=== PATIENT | female | born 1960 | race Caucasian/White ===

== ENCOUNTER 2018-11-25 06:36 | Observation (INO) | payer OTHER ==
[2018-11-25] MEDS ORDERED: NS 1,000 ML IV ONE (06:39)
[2018-11-25 07:12] LABS: PLATELET COUNT 156 10^3/uL (150-400)
[2018-11-25 07:21] LABS: INR 0.92 (0.83-1.16)
--- NOTE | 2018-11-25 07:47 | PDGENHP ---
History & Physical Chief Complaint: svt Relevant Physical Exam: s1s2 rrr cta ao3 Cardiorespiratory Assessment: for eps and svt ablation
[2018-11-25] MEDS ORDERED: ISOPROTERENOL HCL/D5W 0.2 MG/50 ML BAG IV ONE (08:16)
[2018-11-25] MEDS ORDERED: BUPIVACAINE 0.75% 10 ML SDV ONE (08:16)
[2018-11-25] MEDS ORDERED: HEPARIN 10,000 UNIT/10 ML MDV (1,000 UNIT/ML) ONE (08:16)
[2018-11-25] MEDS ORDERED: LIDOCAINE 1% 300 MG/30 ML SDV ONE (08:16)
[2018-11-25] MEDS ORDERED: MIDAZOLAM 2 MG/2 ML VIAL IVP ONE (08:22)
--- NOTE | 2018-11-25 08:25 | PDANEPAE ---
ANE History of Present Illness 58 YO with hx of SVT ANE Past Medical History - Cardiovascular History Hx Arrhythmias: Yes - Pulmonary History Hx Sleep Apnea: No ANE Review of Systems Review of systems is: negative Review of Systems: ANE Patient History - Allergies Allergies/Adverse Reactions: No Known Allergies Allergy (Unverified 11/13/09 08:35) - Home Medications Home medications: home medication list seen and reviewed - Anes Hx Anes Hx: post operative nausea - Smoking Hx Smoking Status: Never smoked ANE Labs/Vital Signs - Labs Result Diagrams: 11/25/18 06:50 11/25/18 06:50 - Vital Signs Height: 165.1 cm ANE Physical Exam - Airway Neck exam: FROM Mallampati Score: Class 1 Mouth exam: normal dental/mouth exam - Pulmonary Pulmonary: no respiratory distress, clear to auscultation - Cardiovascular Cardiovascular: regular rate and rhythym - ASA Status ASA Status: III ANE Anesthesia Plan Anesthesia Plan: general endotracheal anesthesia
[2018-11-25] MEDS ORDERED: PROPOFOL/EMULSION 500 MG/50 ML BOTTLE IV ONE ×2 (09:24→10:24)
[2018-11-25] MEDS ORDERED: fentaNYL 100 MCG/2 ML INJ ONE (09:24)
[2018-11-25] MEDS ORDERED: PROPOFOL 200 MG/20 ML VIAL ONE (09:24)
--- NOTE | 2018-11-25 11:24 | EPPROC ---
Electrophysiology Procedure Note: ELECTROPHYSIOLOGIC STUDY AND CATHETER MEDIATED ABLATION OF SLOW/FAST AV CLYDE REENTRY TACHYCARDIA PROCEDURES PERFORMED: 68070-77 EP evaluation with RA/RV/LA pace/record, with arrhythmia induction 82865-03 EP evaluation with RA/RV pace record, insert/reposition catheter, with arrhythmia induction 45503 Intracardiac catheter ablation, SVT arrhythmogenic focus 59658 3D mapping Fluoroscopy INDICATION: Recurrent SVT PROCEDURE: Catheters & Anesthesia: The patient arrived in the Electrophysiology Laboratory in the fasting state. The right clavicular region, right groin, and left groin area were prepped and draped in the usual sterile manner. Anesthesiologist Dr. Les Reynolds administered general anesthesia. Appropriate non-invasive blood pressure, pulse oximetry and end-tidal CO2 monitoring was established. All catheters were placed percutaneously using the modified Seldinger technique , and advanced into position under fluoroscopic guidance. One #6 Uzbek hexapolar non-deflectable electrode catheter was inserted into the right atrial appendage via the left femoral vein (2mm spacing; except the proximal ring which was 25cm from the tip used for unipolar recordings). One #7 Uzbek deflectable octapolar electrode catheter was advanced to the His-bundle position via the left femoral vein (2mm spacing). One #7 Uzbek deflectable quadrapolar catheter was advanced to the anteroseptal right ventricle via the right femoral vein. One #7 Uzbek deflectable catheter with 10 pairs of electrodes was placed via the right femoral vein into the coronary sinus. Heparin was given to keep ACT > 200 s. Programmed stimulation was performed from the right atrium, right ventricle and coronary sinus (left atrium). Parahisian pacing demonstrated constant H-A interval with changing V-A intervals and stimulus-A intervals during capture and loss of capture of proximal RBB proving retrograde conduction over AV node. 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 Ventricular extrastimuli delivered during tachycardia without altering antegrade His bundle activation did not advance next atrial potential, indicating that the tachycardia was not utilizing an accessory pathway for retrograde conduction. VA interval was 5 ms. Mapping of the right atrium and coronary sinus during AVNRT identified earliest atrial activation above the tendon of Negro at a level slightly posterior to the level of the His bundle, consistent with retrograde conduction over the fast AV clyde pathway. A #8 Uzbek deflectable quadrapolar electrode catheter (2mm-5mm-2mm spacing) with 4 mm tip electrode and sensor for the 3D mapping Carto system was advanced to the right atrium. 3 D mapping of the inter-atrial septum and coronary sinus was performed and location of the AV node was marked. A Mobi sheath was used. RF applications were delivered to the region between the tricuspid annulus and the coronary sinus ostium, at the level of the upper edge of the coronary sinus ostium. Radiofrequency applications were also delivered along the roof of the proximal coronary sinus. Junctional rhythm occurred during all of the RF applications. Programmed stimulation was continued post ablation at baseline and during graded doses of isoproterenol upto 2 mcg/min. Sustained AVNRT was not inducible. There were single echo beats. The catheters were removed. The long sheath was changed to a short 9 Fr sheath. The patient was transferred to the cardiovascular holding area in stable condition. Vascular access sheaths were removed in the holding area. There were no apparent complications. Results: A. Spontaneous Intervals: Pre ablation SCL 765 ms AH 60 ms 45 ms Post ablation SCL 680 ms AH 60 ms HV 45 ms B. Antegrade AV clyde function (decremental pacing) Pre ablation FPERP 370 ms SPERP 360 ms SVT at WBB Post ablation FPERP 370 ms WBB CL 360 ms C. Retrograde AV clyde function (decremental pacing) Pre ablation FPERP 300 ms WBB CL 290 ms D. Arrhythmias: Sustained slow/fast AVNRT Cycle length 330 ms, AH interval 270 ms, VARGHESE interval 60 ms VA interval 5 ms CONCLUSIONS 1. 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 ( Slow/fast AVNRT). 2. Successful ablation of the slow AV clyde pathway with elimination of 1:1 antegrade conduction over the slow AV clyde pathway, all retrograde conduction over the slow AV clyde pathway and the inducibility of AVNRT. 3. No complications. Patient Problems: Problems Problem Status Onset SVT (supraventricular tachycardia) Acute
--- NOTE | 2018-11-25 17:10 | POSTANESTH ---
Post Anesthetic Evaluation Cardiovascular Status: Normal, Stable Respiratory Status: Normal, Stable Level of Consciousness/Mental Status: Can Participate in Eval Pain Control: Adequate, Prn Tx Ordered Nausea/Vomiting Control: Adequate, Prn Tx Ordered Complications Possibly Related to Anesthesia: None Noted
[2018-11-26 04:32] LABS: PLATELET COUNT 167 10^3/uL (150-400)
[2018-11-26] MEDS ORDERED: LEVOTHYROXINE 100 MCG TAB PO SCH (06:00)
[2018-11-26 08:50] VITALS: BP 117/62
[2018-11-26] MEDS ORDERED: ASPIRIN 81 MG CHEWABLE TAB PO SCH (09:00)
[2018-11-26] MEDS ORDERED: OXYBUTYNIN 5 MG EXT REL TAB PO SCH (09:00)
[2018-11-26] MEDS ORDERED: OMEGA-3 FATTY ACIDS 1,000 MG CAP PO SCH (09:00)
--- NOTE | 2018-11-26 10:27 | CPEKG ---
Test Reason : OPEN Blood Pressure : / mmHG Vent. Rate : 066 BPM Atrial Rate : 066 BPM P-R Int : 156 ms QRS Dur : 084 ms QT Int : 414 ms P-R-T Axes : 070 014 033 degrees QTc Int : 434 ms Sinus rhythm Low voltage, precordial leads Confirmed by Ángel Mendes ([id number]) on 11/26/2018 10:26:46 AM Referred By: Merrill Tijerina Confirmed By:Ángel Mendes
--- NOTE | 2018-11-26 11:19 | CPEKG ---
Test Reason : OPEN Blood Pressure : / mmHG Vent. Rate : 077 BPM Atrial Rate : 076 BPM P-R Int : 161 ms QRS Dur : 094 ms QT Int : 421 ms P-R-T Axes : 077 046 036 degrees QTc Int : 477 ms Sinus rhythm Low voltage, extremity leads Confirmed by Ángel Mendes ([id number]) on 11/26/2018 11:19:01 AM Referred By: Merrill Tijerina Confirmed By:Ángel Mendes
--- NOTE | 2018-11-26 11:21 | CPEKG ---
Test Reason : OPEN Blood Pressure : / mmHG Vent. Rate : 095 BPM Atrial Rate : 095 BPM P-R Int : 166 ms QRS Dur : 076 ms QT Int : 429 ms P-R-T Axes : 052 012 074 degrees QTc Int : 540 ms Sinus rhythm Probable left atrial enlargement Low voltage, precordial leads Borderline T abnormalities, anterior leads Prolonged QT interval Confirmed by Ángel Mendes ([id number]) on 11/26/2018 11:21:04 AM Referred By: Merrill Tijerina Confirmed By:Ángel Mendes
--- NOTE | 2018-11-26 11:26 | ECHO ---
[email or web address] [address] [address] Main: [phone] Echocardiography Examination Transthoracic Name: ELIANE BUSTILLOS MR#: [id number] Study Date: 11/26/2018 Study Time: 09:24 AM Date of : 1960 Age: 58 year(s) Height: 165.1 cm (65 in.) Weight: 71.21 kg (157 lb.) BSA: 1.78 m2 Gender: Female Examination: Echo Contrast: Image Quality: Adequate Rhythm: Heart Rate: BP: 117 mmHg/62 mmHg Indication: F/U Post EP Study Procedure Staff Referring Physician: Associate Field Service Engineer: Suzette Escamilla [facility] Reading Physician: Isma Gonzalez MD Requesting Provider: Ordering Physician: Merrill Tijerina MD Indication: F/U Post EP Study Measurements Chambers AV/MV Label Value Normal Value Label Value Normal Value EF lower range (%) 60 % AV PGmax 6 mmHg EF upper range (%) 65 % AV PGmean 4 mmHg IVSd, 2D 1 cm (0.6cm - 1.1cm) AV Vmax 1.26 m/s LVDd, 2D 4.5 cm (3.9cm - 5.3cm) GLEN D (continuity eq. 2.5 cm2 LVDs, 2D 3.1 cm (2.1cm - 4cm) VTI) LVEF, 2D 60 % (54% - 74%) MV A Vmax 0.75 m/s LVEF, BP 65 % (55% - 70%) MV DT 204 ms LVOT PGmean 2 mmHg MV E' lateral 0.1 m/s LVOT Vmean 0.74 m/s MV E' mean 0.1 m/s LVOTd 2.2 cm (1.8cm - 2cm) MV E' septal 0.09 m/s LVPWd, 2D 1 cm MV E Vmax 0.82 m/s RVDd, 2D 3.1 cm (1.9cm - 3.8cm) MV E/A 1.09 LA Volume, BP 41 ml (22ml - 52ml) MV E/E' lateral 7.8 LADs, 2D 3.2 cm (2.7cm - 3.8cm) MV E/E' mean 8.63 LAESV index, BP 23 ml/m2 MV E/E' septal 8.8 (0.5 - 1.7) RA Area 14.2 cm2 MV PHT 0.06 s Additional Vessels MV PHT 59 ms Label Value Normal Value MVA PHT 3.7 cm2 AoAsc 3.1 cm TV/PV Patient: ELIANE BUSTILLOS Study Date: 11/26/2018 Page 1 of 2 09:24 AM AoRoot, 2D 3.2 cm (1.4cm - 2.6cm) Label Value Normal Value IVC 1.4 cm (1.2cm - 2.3cm) RA Pressure 5 mmHg RVSP 20 mmHg TR Pmax 15 mmHg TR Vmax 1.95 m/s PV PGmax 3 mmHg PV Vmax, Caliper 0.83 m/s (0.6m/s - 0.9m/s) Conclusions Overall Conclusions: Normal study Findings Left Ventricle: Left ventricle is normal in size. Normal global systolic left ventricular function. The ejection fraction, measured by Simpsons method, is 65 %. EF range is estimated at 60 % - 65 %. Left ventricle wall thickness is normal. There are no regional wall motion abnormalities. Left ventricular diastolic function parameters are normal. Right Ventricle: Normal size right ventricle. Right ventricular systolic function is normal. Left Atrium: The left atrium is normal in size. Mitral Valve: Mitral valve appears structurally normal. Mild mitral regurgitation. No mitral valve stenosis. Aortic Valve: Aortic leaflets are structurally normal. Trivial aortic regurgitation is present. Tricuspid Valve: Tricuspid valve leaflets are structurally normal. Mild tricuspid regurgitation. No tricuspid valve stenosis. Right Ventricular systolic pressure is measured at 20 mmHg. Pulmonary artery pressure normal. Pulmonic Valve: Pulmonic leaflets are structurally normal. Trivial pulmonic valve regurgitation is present. Aorta: The aortic root size in 2D measures 3.2 cm. The ascending aorta measures 3.1 cm. Aorta Measurements AoRoot, 2D is 3.2 cm. IVC: The inferior vena cava is normal in size. Exam Details Procedure Ordered: Echo Procedure Status: Routine study Image Quality: Adequate Facility Location: Cardiac Echo 1 (No Signature Object) Patient: ELIANE BUSTILLOS Study Date: 11/26/2018 Page 2 of 2 09:24 AM [id number]
--- NOTE | 2018-11-26 11:41 | CPEKG ---
Test Reason : OPEN Blood Pressure : / mmHG Vent. Rate : 070 BPM Atrial Rate : 069 BPM P-R Int : 159 ms QRS Dur : 089 ms QT Int : 411 ms P-R-T Axes : 068 023 036 degrees QTc Int : 444 ms Sinus rhythm QTc no longer prolonged Confirmed by Ángel Mendes ([id number]) on 11/26/2018 11:40:29 AM Referred By: Merrill Tijerina Confirmed By:Ángel Mendes
--- NOTE | 2018-11-26 12:29 | GDS ---
[f rep st] DISCHARGE SUMMARY SUPERVISING UTILITY SYSTEMS REPAIRER OPERATOR: Merrill Tijerina MD ADMISSION DIAGNOSIS: Supraventricular tachycardia. DISCHARGE DIAGNOSIS: AVNRT status post successful catheter-mediated ablation of the slow atrioventricular rubina pathway. HOSPITAL COURSE: Patient presented 11/25/2018, for Electrophysiology Study and SVT ablation in the setting of recurrent and symptomatic episodes of SVT. EP study demonstrated AV rubina reentrant tachycardia using the slow AV rubina pathway for antegrade conduction, and the fast AV rubina pathway for retrograde conduction (slow/fast AVNRT). The patient underwent successful ablation of the slow AV rubina pathway with elimination of 1:1 antegrade conduction over the slow AV rubina pathway with elimination of inducibility of AVNRT with Dr. Merrill Tijerina. She had no intra procedure complications and she has done very well in the post procedure setting. She has been ambulating around her room this morning without issues, and she is appropriate and stable for discharge home today. PHYSICAL EXAMINATION: GENERAL: Alert and oriented x4. No apparent distress. VITAL SIGNS: Blood pressure 117/62, heart rate 79, respiratory rate 18, SpO2 93 % on room air, temp 36.8 degrees Celsius. RESPIRATORY: Lungs are clear to auscultation without adventitious breath sounds. CARDIAC: Regular rate and rhythm, S1 and S2. ABDOMEN: Normoactive bowel sounds times all 4 quadrants. No masses or tenderness. Abdomen soft to palpation. SKIN: [place], warm, dry without cyanosis, clubbing, or peripheral edema. EXTREMITIES: Bilateral pursestring sutures removed intact without evidence of hematoma, redness, oozing , swelling or warmth. Pulses are 2+ bilaterally. No edema. LABORATORY STUDIES: Drawn today, CBC and BMP are stable compared to preprocedure. Troponin is 0.119, elevated troponin is to be expected in the postprocedure setting. PROCEDURES: Electrophysiology Study and SVT ablation as mentioned above. Echocardiogram this morning demonstrates normal systolic function with LVEF 65% , mild MR, trivial AI, mild TR, and no evidence of pericardial effusion or new wall motion abnormalities. Electrocardiogram this morning demonstrates normal sinus rhythm without any new ST-T wave or ND interval abnormalities. DISCHARGE DISPOSITION: Patient will be discharged home in stable condition. She is under activity restrictions as below. DISCHARGE MEDICATIONS: Please see discharge medication reconciliation sheet for full details. Please note, patient's Coreg has been discontinued and she has been started on aspirin 81 mg daily for 6 weeks. DISCHARGE INSTRUCTIONS: Post AVNRT ablation instructions reviewed with patient in detail. 1. We discussed activity restrictions including lifting no more than 10 pounds , and avoidance of submerged bathing for 10 days. 2. She will get up and walk around every 45 minutes for 45 days. 3. We also reviewed bleeding precautions, medication compliance, monitoring for signs and symptoms of infection, and monitoring for sustained arrhythmia. At the time of discharge, patient verbalizes understanding regarding all discharge instructions without questions or concerns. She has a followup visit scheduled with Dr. Tijerina in 3 weeks, and she will contact [facility] if she experiences any new or concerning symptoms prior to her upcoming visit. Time spent on discharge, greater than 30 minutes. /[id number]/MODL MTDD
== END 2018-11-26 11:06 | disposition home or self-care (01) ==
LOC: FCATH 06:36 → F2W 11:06
PROVIDERS: ADMIT Internal Medicine Cardiovascular Disease; ATTEND Internal Medicine Cardiovascular Disease
PROC: 02583ZZ Destruction of Conduction Mechanism, Percutaneous Approach (ICD-10-PCS; principal; 2018-11-25)
PROC: 4A023FZ Measurement of Cardiac Rhythm, Percutaneous Approach (ICD-10-PCS; principal; 2018-11-25)
PROC: 02K83ZZ Map Conduction Mechanism, Percutaneous Approach (ICD-10-PCS; principal; 2018-11-25)
PROC: 5A1213Z Performance of Cardiac Pacing, Intermittent (ICD-10-PCS; principal; 2018-11-25)
DX: I47.1 Supraventricular tachycardia (principal)
CPT/HCPCS: 93005; 93306; 93613; 93621; 93623; 93653; C1730; C1732; G0378; C1731; C1766; J1644; J2704; J3010